=== PATIENT | male | born 1990 | race Hispanic/Latino ===

== ENCOUNTER 2016-10-04 14:56 | Inpatient (IN) | payer MEDICAID, OTHER ==
[2016-10-04 14:56] VITALS: BMI 28.7
--- NOTE | 2016-10-04 16:44 | C.PDOC ---
History Of Present Illness 26 y/o male here for detox program from opiates. pt denies any medical complaints. last used yesterday Time Seen by Provider: 10/04/16 16:35 Chief Complaint (Nursing): Substance Abuse Past Medical History Reviewed: Historical Data, Nursing Documentation, Vital Signs Vital Signs: Last Vital Signs Temp 97.5 F L 10/04/16 14:59 Pulse 105 H 10/04/16 14:59 Resp 20 10/04/16 14:59 BP 119/80 10/04/16 14:59 Pulse Ox 97 10/04/16 19:23 - Medical History PMH: Anxiety (denies taking any medication), Depression (denies taking any medication), Gastritis, Hiatal Hernia Denies: Diabetes, Hepatitis, HIV, HTN, Chronic Kidney Disease, Seizures, Sexually Transmitted Disease Surgical History: Endoscopy (8 YRS AGO) - [facility] DETOXIFICATION SERVICES FOR SUBSTANCE ABUSE TREATMENT (05/10/16) GROUP GOVERNMENT SERVICE EXECUTIVE FOR SUBSTANCE ABUSE TREATMENT, PSYCHOEDUCATION (05/10/16) Family History: States: Unknown Family Hx - Social History Hx Tobacco Use: No Hx Alcohol Use: No Hx Substance Use: Yes - Immunization History Hx Tetanus Toxoid Vaccination: Yes Hx Influenza Vaccination: No Hx Pneumococcal Vaccination: No Review Of Systems Constitutional: Negative for: Fever, Chills, Sweats Cardiovascular: Negative for: Chest Pain, Palpitations Respiratory: Negative for: Cough, Shortness of Breath Gastrointestinal: Negative for: Nausea, Vomiting, Abdominal Pain Genitourinary: Negative for: Dysuria Neurological: Negative for: Weakness, Numbness Physical Exam - Physical Exam Appears: Non-toxic, No Acute Distress Skin: Normal Color, Warm, Dry Head: Atraumatic, Normacephalic Chest: Symmetrical, Deformity, No Tenderness Cardiovascular: Rhythm Regular, No Murmur Respiratory: Normal Breath Sounds, No Rales, No Rhonchi, No Stridor, No Wheezing Gastrointestinal/Abdominal: Normal Exam, Soft, No Tenderness, No Guarding, No Rebound Neurological/Psych: Oriented x3, Normal Speech, Normal Motor, Normal Sensation ED Course And Treatment - Laboratory Results Result Diagrams: 10/04/16 17:57 10/04/16 17:57 O2 Sat by Pulse Oximetry: 97 Medical Decision Making Medical Decision Making: pt is medically cleared for detox program. Disposition - Disposition Disposition Time: 19:24 Condition: STABLE - Clinical Impression Clinical Impression: Drug dependence, Opiate dependence Physician Patient Turnover Patient Signed Over To: Teto Resendiz Handoff Comments: await dispo from crisis team, for admission for detox
[2016-10-04 18:04] LABS: RBC URINE < 1 /hpf (0-3); URINE BILIRUBIN NEGATIVE (NEGATIVE); URINE BLOOD NEGATIVE (NEGATIVE); URINE COLOR Yellow (YELLOW); URINE GLUCOSE (UA) NORMAL (Normal); URINE KETONE NEGATIVE (NEGATIVE); URINE LEUKOCYTE ESTERASE NEG Leu/uL (Negative); URINE PROTEIN NEGATIVE (NEGATIVE); URINE UROBILINOGEN NORMAL mg/dL (0.2-1.0)
[2016-10-04 18:07] LABS: BASO % 0.5 % (0.0-2.0); EOS # 0.1 K/uL (0.0-0.7); EOS % 1.2 % (0.0-4.0); HEMATOCRIT 43.7 % (35.0-51.0); LYMPH # 2.9 K/uL (1.0-4.3); MEAN CELL VOLUME 90.6 fL (80.0-94.0); MEAN CORPUSCULAR HEMOGLOBIN 29.9 pg (27.0-31.0); MEAN PLATELET VOLUME 10.9 fL (7.2-11.7); MONO # 0.3 K/uL (0.0-0.8); MONO % 4.1 % (0.0-10.0); NRBC % 0.1 % (0.0-2.0); RED CELL DISTRIBUTION WIDTH 12.9 % (11.5-14.5); WHITE BLOOD COUNT 6.6 K/uL (4.8-10.8)
[2016-10-04 18:10] LABS: CHLORIDE 96 mmol/L (98-107); SODIUM 139 mmol/L (132-148)
[2016-10-04 18:13] LABS: ALB/GLOB RATIO 1.3 (1.0-2.1); ALKALINE PHOSPHATASE 56 U/L (38-126); ALT/SGPT 15 U/L (21-72); AST/SGOT 21 U/L (17-59); BILIRUBIN,TOTAL 0.4 mg/dL (0.2-1.3); BLOOD UREA NITROGEN 13 mg/dL (9-20); CARBON DIOXIDE 29 mmol/L (22-30); GFR AFRICAN-AMERICAN > 60; GLUCOSE,RANDOM 61 mg/dL (75-110); TOTAL PROTEIN 7.7 g/dL (6.3-8.3)
[2016-10-04 18:14] LABS: ALCOHOL SERUM < 10 mg/dl (0-10); CALCIUM 8.7 mg/dl (8.6-10.4)
[2016-10-06 15:52] VITALS: RESP 18
--- NOTE | 2016-10-06 20:17 | PCM.PSYCH ---
Initial Psychiatric Evaluation - Initial Psychiatric Evaluation Legal Status: Capacity Chief Complaint (in patient's own words): I need help. Patient's Reaction to Hospitalization: I'm glad I finally decided to come. History of Present Illness and Precipitating Events: Pt is 26-yr-old white domiciled male living with mother, currently unemployed. Pt started using painkillers at age 23 for stomach issues. At the start, the opiates gave him a feeling of euphoria. Pt progressed to heroin. He snorts 6- 15 bags a day. He smokes on the average 1 blunt a day. Pt occasionaolly uses benzodiazepines. Pt relapsed after losing his part-time job at [employer]. Pt's parents when he was 10. He is an only child. Family psych history includes father w PTSD. mother w depression and anxiety, paternal grandmother has Bipolar Disorder. There is a family history of substance use; has father is on methadone. Pt has a history of cutting; he is diagnosed w Bipolar II. Pt currently on Trazodone, Seroquel, and Strattera. Pt in the past has been tried on Abilify, Zoloft, Depakote, among others. Pt has no legal or history. Pt has GERD and a hiatal hernia and is on Protonix. Pt has never been in rehab. Current Medications: Active Medications Generic Name Dose Route Start Last Admin Trade Name Freq PRN Reason Stop Dose Admin Chlordiazepoxide 25 mg 10/04/16 20:13 10/06/16 14:27 Librium PO 25 mg Q4 PRN Administration Benzo. Withdrawal Clonidine HCl 0.1 mg 10/05/16 10:00 10/06/16 17:57 Catapres PO Not Given BID JANINE Hydroxyzine HCl 25 mg 10/04/16 20:14 10/06/16 00:10 Atarax PO 25 mg Q8H PRN Administration Anxiety Methadone HCl 5 mg 10/06/16 14:04 10/06/16 17:53 Methadone PO 10/08/16 14:05 5 mg ONCE PRN Administration Other Quetiapine Fumarate 100 mg 10/04/16 22:00 10/05/16 21:09 Seroquel PO 100 mg HS JANINE Administration Trazodone HCl 150 mg 10/05/16 22:00 03/25/17 21:09 Desyrel PO 150 mg HS JANINE Administration Past Psychiatric History - Past Psychiatric History Prior Professional Help: See HPI Pertinent Medical Hx (Current Medical&Sleep Prob, Allergies): Allergies Allergy/AdvReac Type Severity Reaction Status Date / Time nicotine Allergy Mild RASH Verified 10/04/16 15:02 Esomeprazole Magnesium [Nexium] 2 tab PO DAILY 05/29/15 Clonidine 0.1 each PO TID 05/10/16 QUEtiapine [Seroquel] 100 mg PO HS #30 tab 05/14/16 traZODone [Desyrel] 100 mg PO HS PRN #30 tab 05/14/16 Atomoxetine HCl [Strattera] 80 mg PO DAILY 10/04/16 Review of Systems - Constitutional Constitutional: Sweats, Malaise - EENT Eyes: UNREMARKABLE Ears: UNREMARKABLE Nose/Mouth/Throat: UNREMARKABLE - Cardiovascular Cardiovascular: UNREMARKABLE - Respiratory Respiratory: UNREMARKABLE - Gastrointestinal Additional comments: GERD - Genitourinary Genitourinary: UNREMARKABLE - Reproductive: Male Reproductive:Male: UNREMARKABLE - Musculoskeletal Musculoskeletal: Arthralgias, Myalgias - Integumentary Integumentary: UNREMARKABLE - Neurological Neurological: UNREMARKABLE - Psychiatric Psychiatric: UNREMARKABLE - Endocrine Endocrine: UNREMARKABLE - Hematologic/Lymphatic Hematologic: UNREMARKABLE Mental Status Examination - Personal Presentation Personal Presentation: Looks stated age - Affect Affect: Constricted - Motor Activity Motor Activity: Calm - Reliability in Providing Information Reliability in Providing Information: Good - Speech Speech: Organized - Mood Mood: Anxious - Formal Thought Process Formal Thought Process: No Impairment - Cognitive Functions Orientation: Person, Place, Situation, Time Sensorium: Alert Attention/Concentration: Attentive Abstract Thinking: As evidence by abstract perception of proverbs Estimate of Intelligence: Average Judgement: Intact, as evidence by: Good judgement Memory: Recent intact, as evidence by: 3/3 object recall, Remote intact, as evidenced by: Abilit to recall sig. life events - Strength & Assets Inventory Strength & Assets Inventory: Intelligence, Education, Employment history DSM 5 DX - Recommended/Plan of Treatment Treatment Recommendations and Plan of Treatment: Opiate withdrawal, severe, Opiate use disorder, severe Cannabis use disorder Bipolar Disorder II GERD Opiate withdrawal, severe, Subutex protocol, group, Milieu, and recreational therapy, individual supportive psychotherapy, BBI and [place] Opiate use disorder, severe, group, Milieu, and recreational therapy, individual supportive psychotherapy, BBI and [place] Cannabis use disorder, group, Milieu, and recreational therapy, individual supportive psychotherapy, BBI and [place] Bipolar Disorder II, Trazodone, Seroquel, Neurontin GERD, Protonix Projected ELOS: 5 days Prognosis: good Discharge Plan and Discharge Criteria: no acute withdrawal symptoms - Smoking Cessation Smoking Cessation Initiated: No
--- NOTE | 2016-10-06 21:47 | PCM.PYCHPN ---
Psychiatric Progress Note - Psychiatric Progress Note Patient seen today, length of contact: 15 min Patient Chief Complaint: i cannot sleep I have restless legs Problems Identified/Issues Discussed: withdrawal symptoms and their management Medical Problems: nothing acute Diagnostic Results: reviewed DSM 5 Symptoms Update: mylagias arthraglias hot and cold sweats Medication Change: Yes (methadone librium taper neurontin) Medical Record Reviewed: Yes Mental Status Examination - Cognitive Function Orientation: Person, Place, Situation, Time Memory: Intact Attention: WNL Concentration: Poor Association: WNL Fund of Knowledge: WNL - Mood Mood: Anxious - Affect Affect: Blunted - Speech Speech: Appropriate - Formal Thought Process Formal Thought Process: No Impairment - Suicidal Ideation Suicidal Ideation: No - Homicidal Ideation Homicidal Ideation: No Goal/Treatment Plan - Goal/Treatment Plan Progress Toward Problem(s) and Goals/Treatment Plan: Opiate withdrawal, severe, Opiate use disorder, severe Cannabis use disorder Bipolar Disorder II GERD Opiate withdrawal, severe, Subutex protocol, group, Milieu, and recreational therapy, individual supportive psychotherapy, BBI and [place] Opiate use disorder, severe, group, Milieu, and recreational therapy, individual supportive psychotherapy, BBI and [place] Cannabis use disorder, group, Milieu, and recreational therapy, individual supportive psychotherapy, BBI and [place] Bipolar Disorder II, Trazodone, Seroquel, Neurontin GERD, Protonix Estimated Date of D/C: 10/08/16 - Smoking Cessation Smoking Cessation Initiated: No
[2016-10-07 05:23] VITALS: TEMP 97.5
--- NOTE | 2016-10-07 08:56 | PCM.PYCHDC ---
Mental Status Examination - Mental Status Examination Orientation: Person, Place, Situation, Time Memory: Intact Mood: Neutral Affect: Constricted Speech: Appropriate Attention: WNL Concentration: WNL Association: WNL Fund of Knowledge: WNL Formal Thought Process: No Impairment Suicidal Ideation: No Current Homicidal Ideation?: No Discharge Summary - Discharge Note Reason for Hospitalization: Heroin detox Consultations:: List each consultation separately and include: 1. Reason for request. 2. Findings. 3. Follow-up Summary of Hospital Course include:: 1. Description of specific treatment plan utilized for patients during their course of treatmen. 2. Summarize the time- course for resolution of acute symptoms and/or regressed behaviors. 3. Describe issues identified and worked on during hospitalization. 4. Describe medication utilized. 5. Describe medical problems identified and treated. 6. Reassessment of suicide risk Summary of Hospital Course: The pt was admitted and started on treatment with psychotherapy, support, psychoeducation and medications. PA and CBT used. The pt attended groups and activities, as well as milieu therapy. All the risks and benefits of medications are discussed and the patient understood and agreed. After care discussed with the patient. He asked for an early discharge b/c his mother was in hospital. Risks discussed. He got 5 mg instead of 10 mg as his last dose. - Final Diagnosis (DSM 5) Condition upon Discharge: STABLE DSM 5: Opiate withdrawal, severe, Opiate use disorder, severe Cannabis use disorder Bipolar Disorder II GERD Disposition: HOME/ ROUTINE Follow-up Treatment Plan: Continue below medications after discharge. Follow after care plan as discussed. Use relapse prevention skills Return to ER or call 911 if suicidal, homicidal or symptoms relapse. Stay away from stress, alcohol and drugs. Prescriptions/Medication Reconciliation: traZODone [Desyrel] 150 mg PO HS #30 tab QUEtiapine [Seroquel] 100 mg PO HS #30 tab - Smoking Cessation Smoking Cessation Medication prescribed: No - Antipsychotic Medications Pt discharged on 2 or more routine antipsychotic medications: No
[2016-10-07 09:12] VITALS: BP 108/59; PULSE 70; O2SAT 100
== END 2016-10-07 10:00 | disposition home or self-care (01) | DRG 745 ==
LOC: C.ER 14:56 → C.7D 19:30
PROVIDERS: ADMIT Psychiatry & Neurology Psychiatry; ATTEND Psychiatry & Neurology Psychiatry
PROC: HZ59ZZZ Individual Psychotherapy for Substance Abuse Treatment, Supportive (ICD-10-PCS; principal; 2016-10-04)
PROC: HZ42ZZZ Group Counseling for Substance Abuse Treatment, Cognitive-Behavioral (ICD-10-PCS; 2016-10-04)
PROC: HZ83ZZZ Medication Management for Substance Abuse Treatment, Antabuse (ICD-10-PCS; 2016-10-04)
PROC: HZ2ZZZZ Detoxification Services for Substance Abuse Treatment (ICD-10-PCS; 2016-10-04)
DX: F11.23 Opioid dependence with withdrawal (principal); F19.20 Other psychoactive substance dependence, uncomplicated; F31.81 Bipolar II disorder; F17.200 Nicotine dependence, unspecified, uncomplicated; F12.90 Cannabis use, unspecified, uncomplicated; Z81.8 Family history of other mental and behavioral disorders; K21.9 Gastro-esophageal reflux disease without esophagitis; Z91.5 Personal history of self-harm; K44.9 Diaphragmatic hernia without obstruction or gangrene

== ENCOUNTER 2016-11-14 09:42 | Emergency (ER) | payer MEDICAID, OTHER ==
[2016-11-14 09:42] VITALS: BMI 28.7
[2016-11-14 09:50] VITALS: BP 137/82; PULSE 69; RESP 18; TEMP 97.9; O2SAT 100
--- NOTE | 2016-11-14 10:19 | C.PDOC ---
History Of Present Illness <Brandie Seth - Last Filed: 11/14/16 10:18> <KailaLizbeth A - Last Filed: 11/14/16 10:23> A 26 year old male presents to the ER requesting detox of heroin. Patient notes his last use was last night. Patient notes withdraw but has no other complaints at this time. (Lizbeth Bright) <Brandie Seth - Last Filed: 11/14/16 10:18> History Per: Patient History/Exam Limitations: no limitations Onset/Duration Of Symptoms: Days Current Symptoms Are (Timing): Still Present Suicide/Self Injury Attempted (Context): None Modifying Factor(s): Other (Heroin) Severity: Mild Associated Symptoms: denies: Suicidal Thoughts, Suicidal Plan Additional History Per: Patient <Lizbeth Bright - Last Filed: 11/14/16 10:23> Time Seen by Provider: 11/14/16 10:15 Chief Complaint (Nursing): Substance Abuse Past Medical History - Medical History PMH: Anxiety (denies taking any medication), Depression (denies taking any medication), Gastritis, Hiatal Hernia Denies: Diabetes, Hepatitis, HIV, HTN, Chronic Kidney Disease, Seizures, Sexually Transmitted Disease Surgical History: Endoscopy Family History: States: Unknown Family Hx - Social History Hx Tobacco Use: No Hx Alcohol Use: No Hx Substance Use: Yes - Immunization History Hx Tetanus Toxoid Vaccination: Yes Hx Influenza Vaccination: No Hx Pneumococcal Vaccination: No <Brandie Seth - Last Filed: 11/14/16 10:18> ED Course And Treatment O2 Sat by Pulse Oximetry: 100 <Brandie Seth - Last Filed: 11/14/16 10:18> Disposition - Disposition Disposition Time: 10:19 - POA Present On Arrival: None <SethBrandie Domo - Last Filed: 11/14/16 10:18> <Lizbeth Bright - Last Filed: 11/14/16 10:23> - Disposition Additional Instructions: Please call [phone] or [phone] to inquire about our Detox availability , may speak to coordinator Marielena Instructions: Narcotic Abuse (ED)
--- NOTE | 2016-11-14 10:27 | C.PDOC ---
History Of Present Illness A 26 year old male presents to the ER requesting detox of heroin. Patient notes his last use was last night. Patient has no withdrawal signs, and has no other complaints at this time. Time Seen by Provider: 11/14/16 10:15 Chief Complaint (Nursing): Substance Abuse History Per: Patient History/Exam Limitations: no limitations Onset/Duration Of Symptoms: Days Current Symptoms Are (Timing): Still Present Suicide/Self Injury Attempted (Context): None Modifying Factor(s): Other (Heroin) Associated Symptoms: denies: Suicidal Thoughts, Suicidal Plan Recent travel outside of the [place]: No Additional History Per: Patient Past Medical History Reviewed: Historical Data, Nursing Documentation, Vital Signs Vital Signs: Last Vital Signs Temp 97.9 F 11/14/16 09:45 Pulse 69 11/14/16 09:45 Resp 18 11/14/16 09:45 BP 137/82 11/14/16 09:45 Pulse Ox 100 11/14/16 10:28 - Medical History PMH: Anxiety (denies taking any medication), Depression (denies taking any medication), Gastritis, Hiatal Hernia Surgical History: Endoscopy - [facility] DETOXIFICATION SERVICES FOR SUBSTANCE ABUSE TREATMENT (10/04/16) GROUP INFANT TEACHER FOR SUBSTANCE ABUSE TREATMENT, PSYCHOEDUCATION (05/10/16) GROUP INFANT TEACHER FOR SUBSTANCE ABUSE, COGNITIVE BEHAVIORAL (10/04/16) INDIV PSYCHOTHERAPY FOR SUBSTANCE ABUSE TREATMENT, SUPPORT (10/04/16) MEDS MGMT FOR SUBSTANCE ABUSE TREATMENT, ANTABUSE (10/04/16) Family History: States: Unknown Family Hx - Social History Hx Tobacco Use: No Hx Alcohol Use: No Hx Substance Use: Yes - Immunization History Hx Tetanus Toxoid Vaccination: Yes Hx Influenza Vaccination: No Hx Pneumococcal Vaccination: No Review Of Systems Constitutional: Negative for: Fever, Chills Cardiovascular: Negative for: Chest Pain, Palpitations Respiratory: Negative for: Cough, Shortness of Breath Gastrointestinal: Negative for: Nausea, Vomiting, Diarrhea Psych: Positive for: Other (Opiate abuse). Negative for: Suicidal ideation Physical Exam - Physical Exam Appears: Non-toxic, No Acute Distress, Other (Appears anxious) Skin: Warm, Dry Head: Atraumatic, Normacephalic Eye(s): bilateral: Normal Inspection, EOMI Neck: Normal ROM Chest: Symmetrical Cardiovascular: Rhythm Regular, No Murmur Respiratory: Normal Breath Sounds, No Rales, No Rhonchi, No Wheezing Gastrointestinal/Abdominal: No Tenderness Extremity: Bilateral: Atraumatic, Normal Color And Temperature, Normal ROM Neurological/Psych: Oriented x3, Normal Speech, No Other (No focal deficit) Gait: Steady ED Course And Treatment O2 Sat by Pulse Oximetry: 100 (Room air) Pulse Ox Interpretation: Normal Medical Decision Making Medical Decision Making: Contact Marielena detox coordinator who reports there are no beds available for detox. Patient was given list of local detox centers. Patient to be discharged and stable Disposition - Disposition Disposition: HOME/ ROUTINE Disposition Time: 10:20 Condition: STABLE Additional Instructions: Please call [phone] or [phone] to inquire about our Detox availability , may speak to coordinator Marielena Instructions: Narcotic Abuse (ED) - POA Present On Arrival: None - Clinical Impression Clinical Impression: Opiate dependence - Scribe Statement The provider has reviewed the documentation as recorded by the Scribe Kristine hodges All medical record entries made by the Scribe were at my direction and personally dictated by me. I have reviewed the chart and agree that the record accurately reflects my personal performance of the history, physical exam, medical decision making, and the department course for this patient. I have also personally directed, reviewed, and agree with the discharge instructions and disposition.
== END 2016-11-14 10:20 | disposition home or self-care (01) ==
LOC: C.ER 09:42
DX: F11.20 Opioid dependence, uncomplicated (principal)

== ENCOUNTER 2017-11-25 00:48 | Emergency (ER) | payer MEDICAID ==
[2017-11-25 00:48] VITALS: BMI 28.7
[2017-11-25] MEDS ORDERED: Sodium Chloride 0.9% 500 ML IV ONE ×2 (01:27→01:53)
[2017-11-25 01:56] LABS: BASO # 0.1 K/uL (0.0-0.2); BASO % 0.5 % (0.0-2.0); EOS % 0.1 % (0.0-4.0); HEMOGLOBIN 15.1 g/dL (12.0-18.0); LYMPH # 2.7 K/uL (1.0-4.3); LYMPH % 18.8 % (20.0-40.0); MEAN CELL VOLUME 84.4 fL (80.0-94.0); MEAN CORPUSCULAR HEMOGLOBIN 28.6 pg (27.0-31.0); MEAN CORPUSCULAR HGB CONC 33.9 g/dL (33.0-37.0); MEAN PLATELET VOLUME 9.6 fL (7.2-11.7); MONO # 0.7 K/uL (0.0-0.8); MONO % 4.8 % (0.0-10.0); NEUT % 75.8 % (50.0-75.0); RBC 5.3 Mil/uL (4.40-5.90); RED CELL DISTRIBUTION WIDTH 14.1 % (11.5-14.5); WHITE BLOOD COUNT 14.6 K/uL (4.8-10.8)
[2017-11-25 02:08] LABS: ALB/GLOB RATIO 1.2 (1.0-2.1); ALBUMIN 4.7 g/dL (3.5-5.0); ALT/SGPT 45 U/L (21-72); AST/SGOT 31 U/L (17-59); BLOOD UREA NITROGEN 20 mg/dL (9-20); CALCIUM 9.9 mg/dl (8.6-10.4); GFR AFRICAN-AMERICAN > 60; GFR NON-AFRICAN AMERICAN > 60
--- NOTE | 2017-11-25 03:15 | C.PDOC ---
History Of Present Illness 27 year old male presents to the ED c/o malaise, nausea with several episodes of vomiting. Patient states he works at [email or web address] where its overheating and recently he has been sweating profusely and while at home feels drowsy "sluggish ". Patient tried to hydrate but was unable to keep fluid or solid down. Patient denies fever, chills, diarrhea, rash. Time Seen by Provider: 11/25/17 01:26 Chief Complaint (Nursing): GI Problem History Per: Patient History/Exam Limitations: no limitations Onset/Duration Of Symptoms: Days Current Symptoms Are (Timing): Still Present Recent travel outside of the [place]: No Additional History Per: Patient Past Medical History Reviewed: Historical Data, Nursing Documentation, Vital Signs Vital Signs: Last Vital Signs Temp 98.9 F 11/25/17 03:27 Pulse 82 11/25/17 03:27 Resp 18 11/25/17 03:27 BP 138/79 11/25/17 03:27 Pulse Ox 97 11/25/17 03:53 - Medical History PMH: Anxiety (denies taking any medication), Depression (denies taking any medication), Gastritis, Hiatal Hernia Denies: Diabetes, Hepatitis, HIV, HTN, Chronic Kidney Disease, Seizures, Sexually Transmitted Disease Surgical History: Endoscopy - [facility] DETOXIFICATION SERVICES FOR SUBSTANCE ABUSE TREATMENT (10/04/16) GROUP IT PROJECT MANAGER FOR SUBSTANCE ABUSE TREATMENT, PSYCHOEDUCATION (05/10/16) GROUP IT PROJECT MANAGER FOR SUBSTANCE ABUSE, COGNITIVE BEHAVIORAL (10/04/16) INDIV PSYCHOTHERAPY FOR SUBSTANCE ABUSE TREATMENT, SUPPORT (10/04/16) MEDS MGMT FOR SUBSTANCE ABUSE TREATMENT, ANTABUSE (10/04/16) Family History: States: Unknown Family Hx - Social History Hx Tobacco Use: No Hx Alcohol Use: No Hx Substance Use: Yes - Immunization History Hx Tetanus Toxoid Vaccination: Yes Hx Influenza Vaccination: No Hx Pneumococcal Vaccination: No Review Of Systems Constitutional: Positive for: Weakness, Malaise. Negative for: Fever, Chills Cardiovascular: Negative for: Chest Pain Respiratory: Negative for: Shortness of Breath Gastrointestinal: Positive for: Nausea, Vomiting. Negative for: Abdominal Pain Neurological: Negative for: Weakness, Numbness, Headache, Dizziness Physical Exam - Physical Exam Appears: Non-toxic, No Acute Distress, Other (appears flushed) Skin: Normal Color, Warm, Dry Head: Atraumatic, Normacephalic Eye(s): bilateral: Normal Inspection, PERRL Nose: No Discharge Oral Mucosa: Moist Neck: Normal ROM, Supple Chest: Symmetrical Cardiovascular: Rhythm Regular, No Murmur Respiratory: Normal Breath Sounds, No Rales, No Rhonchi, No Wheezing Gastrointestinal/Abdominal: Soft, No Tenderness, No Guarding, No Rebound Extremity: Normal ROM, No Tenderness, No Swelling Neurological/Psych: Oriented x3, Normal Speech Gait: Steady ED Course And Treatment - Laboratory Results Result Diagrams: 11/25/17 01:53 11/25/17 01:53 O2 Sat by Pulse Oximetry: 97 (On RA) Pulse Ox Interpretation: Normal Progress Note: Plan: - EKG. - Labs. - IV fluids. - Zofran 4 mg IVP. On reassessment, patient is resting comfortably, and is in no acute distress, tolerated PO fluids. Patient was instructed to follow up with physician/clinic in 1-2 days for further evaluation. Reassessment Condition: Improved Disposition Counseled Patient/Family Regarding: Diagnosis, Need For Followup - Disposition Referrals: [facility] [Outside] Disposition: HOME/ ROUTINE Disposition Time: 03:15 Condition: GOOD Additional Instructions: Keep yourself hydrated ( water,gatorade, vitamin water) Follwo up with your doctor in 1-2 days Return to ER if worse Instructions: Dehydration, Adult (DC) Forms: Gen Discharge Inst [facility], [facility] ([place]), Work Excuse - Clinical Impression Clinical Impression: Heat exhaustion, Dehydration, mild - PA / APPLICATIONS TESTER / Resident Statement MD/DO has reviewed & agrees with the documentation as recorded. - Scribe Statement The provider has reviewed the documentation as recorded by the Scribe Jerzy Glaser All medical record entries made by the Scribe were at my direction and personally dictated by me. I have reviewed the chart and agree that the record accurately reflects my personal performance of the history, physical exam, medical decision making, and the department course for this patient. I have also personally directed, reviewed, and agree with the discharge instructions and disposition.
[2017-11-25 03:28] VITALS: BP 138/79; PULSE 82; RESP 18; TEMP 98.9
[2017-11-25 03:51] VITALS: O2SAT 97
--- NOTE | 2017-11-28 17:25 | CARD ---
APPROVED REPORT EKG Measurement Heart [id number] <Conclusion> Normal sinus rhythm Normal ECG
== END 2017-11-25 03:28 | disposition home or self-care (01) ==
LOC: C.ER 00:48
DX: T67.5XXA Heat exhaustion, unspecified, initial encounter (principal); E86.0 Dehydration
CPT/HCPCS: 80053; 82550; 85025; 96374; 99284; J2405; J7040

== ENCOUNTER 2018-02-27 16:18 | Inpatient (IN) | payer MEDICAID ==
[2018-02-27 16:18] VITALS: BMI 28.7
--- NOTE | 2018-02-27 16:52 | C.PDOC ---
History Of Present Illness 28 y/o male presents to ED requesting detox from opiates and heroin. Pt is pre- screened. Otherwise, he denies SI, HI, or any active physical complaints at this time. Time Seen by Provider: 02/27/18 16:39 Chief Complaint (Nursing): Substance Abuse History Per: Patient History/Exam Limitations: no limitations Past Medical History Reviewed: Historical Data, Nursing Documentation, Vital Signs Vital Signs: Last Vital Signs Temp 98.7 F 02/27/18 16:24 Pulse 95 H 02/27/18 16:24 Resp 18 02/27/18 16:24 BP 116/73 02/27/18 16:24 Pulse Ox 95 02/27/18 16:52 - Medical History PMH: Anxiety (denies taking any medication), Depression (denies taking any medication), Gastritis, Hiatal Hernia Denies: Diabetes, Hepatitis, HIV, HTN, Chronic Kidney Disease, Seizures, Sexually Transmitted Disease Surgical History: Endoscopy - [facility] DETOXIFICATION SERVICES FOR SUBSTANCE ABUSE TREATMENT (10/04/16) GROUP ORACLE SOA DEVELOPER FOR SUBSTANCE ABUSE TREATMENT, PSYCHOEDUCATION (05/10/16) GROUP ORACLE SOA DEVELOPER FOR SUBSTANCE ABUSE, COGNITIVE BEHAVIORAL (10/04/16) INDIV PSYCHOTHERAPY FOR SUBSTANCE ABUSE TREATMENT, SUPPORT (10/04/16) MEDS MGMT FOR SUBSTANCE ABUSE TREATMENT, ANTABUSE (10/04/16) Family History: States: Unknown Family Hx - Social History Hx Tobacco Use: No Hx Alcohol Use: No Hx Substance Use: Yes - Immunization History Hx Tetanus Toxoid Vaccination: Yes Hx Influenza Vaccination: No Hx Pneumococcal Vaccination: Yes Review Of Systems Except As Marked, All Systems Reviewed And Found Negative. Constitutional: Negative for: Fever, Chills Cardiovascular: Negative for: Chest Pain Respiratory: Negative for: Shortness of Breath Physical Exam - Physical Exam Additional Physical Exam Comments: Constitutional: No acute distress. Head: Normocephalic. Atraumatic. Eyes: PERRL. ENT: Moist mucous membranes. Neck: Supple. Cardiovascular: Regular rate. Radial pulse 2+ bilaterally. Chest: No tenderness. Respiratory: Clear to auscultation bilaterally. GI: Soft. Nontender. Nondistended. Back: No CVA tenderness. Musculoskeletal: No tenderness or swelling of extremities. Skin: No rash. Neurologic: Alert, no focal deficit ED Course And Treatment - Laboratory Results Result Diagrams: 02/27/18 17:10 02/27/18 17:10 O2 Sat by Pulse Oximetry: 95 Medical Decision Making Medical Decision Making: Plan: Blood work Urinalysis Disposition - Disposition Disposition: HOSPITALIZED Disposition Time: 18:47 Condition: FAIR Forms: [facility] (Slovenian) - Clinical Impression Clinical Impression: Opioid use disorder, severe, dependence, History of depression, History of anxiety, History of ADHD - Scribe Statement The provider has reviewed the documentation as recorded by the Scribe KP All medical record entries made by the Scribe were at my direction and personally dictated by me. I have reviewed the chart and agree that the record accurately reflects my personal performance of the history, physical exam, medical decision making, and the department course for this patient. I have also personally directed, reviewed, and agree with the discharge instructions and disposition.
[2018-02-27 17:15] LABS: BASO % 0.5 % (0.0-2.0); EOS # 0.2 K/uL (0.0-0.7); EOS % 1.5 % (0.0-4.0); HEMOGLOBIN 15.2 g/dL (12.0-18.0); LYMPH # 4.2 K/uL (1.0-4.3); LYMPH % 41.9 % (20.0-40.0); MEAN CORPUSCULAR HEMOGLOBIN 29.7 pg (27.0-31.0); MEAN CORPUSCULAR HGB CONC 34.1 g/dL (33.0-37.0); MEAN PLATELET VOLUME 10.3 fL (7.2-11.7); MONO # 0.4 K/uL (0.0-0.8); NEUT # 5.2 K/uL (1.8-7.0); NEUT % 52.1 % (50.0-75.0); NRBC % 0.1 % (0.0-2.0); RBC 5.12 Mil/uL (4.40-5.90); RED CELL DISTRIBUTION WIDTH 14.3 % (11.5-14.5)
[2018-02-27 17:21] LABS: URINE BILIRUBIN NEGATIVE (NEGATIVE); URINE BLOOD NEGATIVE (NEGATIVE); URINE CLARITY Clear (Clear); URINE COLOR Yellow (YELLOW); URINE GLUCOSE (UA) NORMAL (Normal); URINE LEUKOCYTE ESTERASE NEG Leu/uL (Negative); URINE PROTEIN NEGATIVE (NEGATIVE); URINE UROBILINOGEN NORMAL mg/dL (0.2-1.0)
[2018-02-27 17:26] LABS: ALB/GLOB RATIO 1.5 (1.0-2.1); ALBUMIN 4.6 g/dL (3.5-5.0); ALT/SGPT 22 U/L (21-72); AST/SGOT 14 U/L (17-59); BLOOD UREA NITROGEN 17 mg/dL (9-20); CALCIUM 9.2 mg/dl (8.6-10.4); GFR AFRICAN-AMERICAN > 60; GFR NON-AFRICAN AMERICAN > 60
[2018-02-27 17:40] LABS: BARBITURATES, UR NEGATIVE (NEGATIVE); BENZODIAZEPINES, UR NEGATIVE (NEGATIVE); PHENCYCLIDINE, UR NEGATIVE (NEGATIVE)
[2018-02-27 17:42] LABS: OPIATES, UR POSITIVE (NEGATIVE)
[2018-02-27] MEDS ORDERED: Aluminum Hydroxide/Magnesium Hydroxide Susp (30 mL) PO PRN (18:38)
--- NOTE | 2018-02-27 18:58 | PCM.BM ---
<uX Iqbal - Last Filed: 02/27/18 18:57> Treatment Plan Problems - Problems identified on initial assessmt potential for opiate withdrawal Date Initiated: 02/27/18 Time Initiated: 18:58 Status: Active Treatment assets and liabiliti Patient Assests: cognitively intact Patient Liabilities: substance abuse, medical problems - Milieu Protocol Maintain good personal hygiene: daily Encourage regular showers, daily Remind patient to perform daily oral care, daily Assist patient to perform ADL's Conduct patient checks and document Observation sheet: Q15 minutes Maintain personal safety: every shift Educate patient to report safety concerns to staff, every shift Monitor environment for contraband/sharps Medication safety: Monitor for expected outcome, potential side effects: every shift, Assess barriers to learning: every shift, Assess readiness for medication education: every shift <Marielena Dorado - Last Filed: 03/02/18 09:41> Family Contact Family involvement: Famliy/SO not involved - Goals for Treatment Patient goals for treatment: Complete detox and transition to IOP with SUBOXONE MAINTENANCE. Discharge/Continuing Care - Education Needs Education Needs: Patient Medication, Patient Diagnosis/Disease Process, Patient Coping Skills, Patient Anger Management skills, Patient Placement options, Patient Community resources - Discharge Discharge Criteria: No longer exhibiting s/s of withdrawal, Reduction of target symptoms Discharge to:: Home - Treatment Team Participation Patient/Family/SO Statement: 03/02/18 09:41 "I wanna go to an IOP and resume Suboxone with my doctor..." Discussed with Family/SO: No Was Patient/Family/SO present at Treatment Team Meeting: Yes <Sally Rogers - Last Filed: 03/02/18 23:01> - Diagnosis (1) Opioid use disorder, severe, dependence Status: Acute Interventions: 03/02/18 23:00 * Assess 7x/week regarding severity of withdrawal * Educate regarding risks, benefits, side effects and alternatives of medications * Use Motivational Interviewing for abstinence * Use CBT for relapse prevention * Medication management for withdrawal symptoms * Encourage medication assisted treatment
[2018-02-28] MEDS ORDERED: Buprenorphine Hydrochloride 2 mg SL ONE ×2 (08:28→11:45)
--- NOTE | 2018-02-28 20:43 | PCM.PSYCH ---
Initial Psychiatric Evaluation - Initial Psychiatric Evaluation Legal Status: Capacity Chief Complaint (in patient's own words): I NEED TO GET CLEAN Patient's Reaction to Hospitalization: I FEEL SAFE HERE History of Present Illness and Precipitating Events: PT IS A 28 YEAR OLD WHITE SINGLE DOMICILED MALE WHO CAME TO [facility] FOR DETOX FROM HEROIN.PT WAS ORIGINALLY GIVEN OPIOIDS FOR BACK PAIN AND THE PAIN KILLER GAVE HIMN EUPHORIA. PT STARTED USING HEROIN INTRANASAALY AT AGE22. AT HIS WORST HE WOULD DO 5-8 BUNDLES A DAY. CURRENTLY HE HAS BEEN USING ABOUT 2 BUNDLES A DAY.HE USES CANNABIS OCCASIONALLY. HE DENIES USE AND ABUSE OF ANY OTHER SUBSTANCE LICIT OR ILLICIT. PT HAS NEVER BEEN IN THE . HE HAS BEEN ARRESTED FOR DISORDERLY CONDUCT. MOTHER, MATERNAL AUNT AND MATERNAL GRANDMOTHER ALL SUFFER FROM ANXIETY ANDDEPRESSION. FATHER USED HEROIN AND OTHER DRUGS. PT HAS NO MEDICAL PROBLEMS. PT IS EARNING A BACHELOR IN BUSINESS ADMINSTRATION. PT HAS BEEN ON NEURONTIN AND TRAZODONE WELL PROZAC IN THE PAST. PT HAS BEEN DIAGNOSED WITH ADHD AND IS PRESCRIBED ADDERALL. Current Medications: Active Medications Generic Name Dose Route Start Last Admin Trade Name Freq PRN Reason Stop Dose Admin Acetaminophen 650 mg 02/27/18 18:38 Tylenol 325mg Tab PO Q4H PRN Pain, moderate (4-7) Al Hydrox/Mg Hydrox/Simethicone 30 ml 02/27/18 18:38 Maalox 30 Ml PO TID PRN Indigestion / Heartburn Buprenorphine HCl 6 mg 03/01/18 10:00 Subutex SL 03/04/18 09:59 .TAPER JANINE Taper Clonidine HCl 0.1 mg 02/27/18 18:38 Catapres PO Q8 PRN COWS Score More or Equal to 5 Cyclobenzaprine HCl 5 mg 02/28/18 14:00 02/28/18 18:14 Flexeril PO 5 mg TID JANINE Administration Gabapentin 300 mg 02/28/18 10:00 02/28/18 18:14 Neurontin PO 300 mg TID JANINE Administration Hydroxyzine HCl 25 mg 02/27/18 18:52 Atarax PO Q6 PRN Anxiety Loperamide HCl 2 mg 02/27/18 18:38 Imodium PO Q8 PRN Diarrhea Ondansetron HCl 4 mg 02/27/18 18:38 Zofran Tab PO Q8 PRN Nausea/Vomiting Trazodone HCl 100 mg 02/27/18 22:00 02/27/18 22:24 Desyrel PO 100 mg HS JANINE Administration Past Psychiatric History - Past Psychiatric History Prior Professional Help: SEE HPI Pertinent Medical Hx (Current Medical&Sleep Prob, Allergies): Allergies Allergy/AdvReac Type Severity Reaction Status Date / Time No Known Allergies Allergy Verified 02/27/18 16:22 Esomeprazole Magnesium [Nexium] 2 tab PO DAILY 05/29/15 Buprenorphine HCl/Naloxone HCl [Suboxone 8 mg-2 mg Sl Film] 1 each SL TID Gabapentin 300 mg PO DAILY 11/25/17 traZODone [Desyrel] 100 mg PO BID 11/25/17 Dextroamphetamine/Amphetamine [Adderall Xr 20 mg Capsule] 20 mg PO DAILY Review of Systems - Review of Systems Systems not reviewed;Unavailable: Acuity of Condition - Constitutional Constitutional: Chills, Weakness, Malaise - EENT Eyes: UNREMARKABLE Ears: UNREMARKABLE Nose/Mouth/Throat: UNREMARKABLE - Cardiovascular Cardiovascular: UNREMARKABLE - Respiratory Respiratory: UNREMARKABLE - Gastrointestinal Gastrointestinal: Nausea - Genitourinary Genitourinary: UNREMARKABLE - Reproductive: Male Reproductive:Male: UNREMARKABLE - Musculoskeletal Musculoskeletal: Arthralgias, Myalgias - Integumentary Integumentary: UNREMARKABLE - Neurological Neurological: UNREMARKABLE - Psychiatric Psychiatric: Anxiety, Depression - Endocrine Endocrine: UNREMARKABLE - Hematologic/Lymphatic Hematologic: UNREMARKABLE Mental Status Examination - Affect Affect: Constricted - Motor Activity Motor Activity: Calm - Reliability in Providing Information Reliability in Providing Information: Good - Speech Speech: Organized - Mood Mood: Anxious - Formal Thought Process Formal Thought Process: No Impairment - Obsessions/Compulsions Obsessions: None Compulsions: None - Cognitive Functions Orientation: Person, Place, Situation, Time Sensorium: Alert Attention/Concentration: Attentive Abstract Thinking: As evidence by abstract perception of proverbs Estimate of Intelligence: Above Average Judgement: Intact, as evidence by: Good judgement Memory: Recent intact, as evidence by: Ability to recall events of the day, Remote intact, as evidenced by: Abilit to recall sig. life events - Risk Risk: Withdrawal, Diminished functioning - Limitations Limitations: Other DSM 5 DX - DSM 5 DSM 5 Diagnosis: OPIOID WITHDRAWAL SUBUTEX TAPER OPIOID USE DISORDER SEVERE MS CBT SUPPORTIVE PSYCHOTHERAPY GROUP MILIEU AND RECREATIONAL THERAPY - Recommended/Plan of Treatment Treatment Recommendations and Plan of Treatment: SEE ABOVE Projected ELOS: 5 DAYS Prognosis: GOOD WITH TREATMENT Discharge Plan and Discharge Criteria: INPATIENT REHAB NO ACUTE WITHDRAWAL SYMPTOMS - Smoking Cessation Smoking Cessation Initiated: No
[2018-03-01] MEDS: Buprenorphine Hydrochloride 2 mg SL SCH (09:20)
--- NOTE | 2018-03-01 20:14 | PCM.PYCHPN ---
Psychiatric Progress Note - Psychiatric Progress Note Patient seen today, length of contact: 15 MIN Patient Chief Complaint: I CAN'T SLEEP Problems Identified/Issues Discussed: PT SEEN AND EXAMINED DISCUSSED WITH STAFF NURSES' NOTES REVIEWED DISCUSSED WITH PT OPTIONS FOR MAT SUBOXONE VS MMTP ALSO SELF HELP GROUPS Medical Problems: NONE REPORTED Diagnostic Results: REVIEWED DSM 5 Symptoms Update: INSOMNIA MYALGIAS ARTHRAGLIAS Medication Change: Yes ( DOSAGES CHANGE DAILY DURING A TAPER) Medical Record Reviewed: Yes Mental Status Examination - Cognitive Function Orientation: Place, Situation, Time Memory: Intact Attention: WNL Concentration: WNL Association: WNL Fund of Knowledge: WNL - Mood Mood: Anxious - Affect Affect: Constricted - Formal Thought Process Formal Thought Process: No Impairment - Suicidal Ideation Suicidal Ideation: No - Homicidal Ideation Homicidal Ideation: No Goal/Treatment Plan - Goal/Treatment Plan Need for Continued Stay: Severe depression anxiety Progress Toward Problem(s) and Goals/Treatment Plan: OPIOID WITHDRAWAL SUBUTEX TAPER WITH PRNS FOR NECESSARY SYMPTOMS OPIOID USECDISORDER SEVERE NE CBT GROUP MILIEU AND RECREATIONAL THERAPY SUPPORTIVE PSYCHOTHERAPY Estimated Date of D/C: 03/05/18 - Smoking Cessation Smoking Cessation Initiated: No
[2018-03-02] MEDS: Buprenorphine Hydrochloride 2 mg SL SCH (09:20)
--- NOTE | 2018-03-02 15:56 | PCM.PYCHPN ---
Psychiatric Progress Note - Psychiatric Progress Note Patient seen today, length of contact: 15 minutes Patient Chief Complaint: "I need detox." Problems Identified/Issues Discussed: Pt is seen, chart reviewed, case discussed with staff. Pt is compliant with medications and reports no side-effects. Symptoms are improving but needs more time to stabilize. Pt is pleasant and willing to do whatever he can so that he can continue with his Suboxone treatment; pt has quit his job to avoid the stress it brings and is interested in an outpatient program. After care discussed. Medication Change: Yes ( DOSAGES CHANGE DAILY DURING A TAPER) Medical Record Reviewed: Yes Mental Status Examination - Cognitive Function Orientation: Place, Situation, Time Memory: Intact Attention: WNL Concentration: WNL Association: WNL Fund of Knowledge: WNL - Mood Mood: Anxious - Affect Affect: Constricted - Formal Thought Process Formal Thought Process: No Impairment - Suicidal Ideation Suicidal Ideation: No - Homicidal Ideation Homicidal Ideation: No Goal/Treatment Plan - Goal/Treatment Plan Need for Continued Stay: Severe depression anxiety Progress Toward Problem(s) and Goals/Treatment Plan: Continue medications. Support and psychoeducation daily Attend groups and activities daily After care planning by TYESHA 15 min Estimated Date of D/C: 03/05/18
[2018-03-02 17:28] VITALS: RESP 18
[2018-03-03 09:43] VITALS: BP 117/78; PULSE 82; TEMP 98.3; O2SAT 99
[2018-03-03] MEDS: Buprenorphine Hydrochloride 2 mg SL SCH (09:45)
--- NOTE | 2018-03-03 10:39 | PCM.PYCHDC ---
Mental Status Examination - Mental Status Examination Orientation: Person, Place, Situation, Time Memory: Intact Mood: Anxious Affect: Constricted Speech: Appropriate Attention: WNL Concentration: WNL Association: WNL Fund of Knowledge: WNL Formal Thought Process: No Impairment Suicidal Ideation: No Current Homicidal Ideation?: No Discharge Summary - Discharge Note Reason for Hospitalization: Opioid detox Consultations:: List each consultation separately and include: 1. Reason for request. 2. Findings. 3. Follow-up Summary of Hospital Course include:: 1. Description of specific treatment plan utilized for patients during their course of treatmen. 2. Summarize the time- course for resolution of acute symptoms and/or regressed behaviors. 3. Describe issues identified and worked on during hospitalization. 4. Describe medication utilized. 5. Describe medical problems identified and treated. 6. Reassessment of suicide risk Summary of Hospital Course: The pt was admitted and started on treatment with psychotherapy, support, psychoeducation and medications. CA and CBT used. The pt attended groups and activities, as well as milieu therapy. All the risks and benefits of medications are discussed and the patient understood and agreed. The pt improved with the treatments provided. After care discussed with the patient. He will go to [facility] treatment. - Final Diagnosis (DSM 5) Condition upon Discharge: IMPROVED DSM 5: Opioid withdrawal opioid use d/o - severe Disposition: HOME/ ROUTINE Follow-up Treatment Plan: Continue below medications after discharge. Follow after care plan as discussed. Use relapse prevention skills Return to ER or call 911 if suicidal, homicidal or symptoms relapse. Stay away from stress, alcohol and drugs. See primary doctor regularly and get labs. Prescriptions/Medication Reconciliation: Cyclobenzaprine [Flexeril] 5 mg PO TID #90 tab Gabapentin [Neurontin] 300 mg PO TID #90 cap traZODone [Desyrel] 100 mg PO HS #30 tab - Smoking Cessation Smoking Cessation Medication prescribed: No - Antipsychotic Medications Pt discharged on 2 or more routine antipsychotic medications: No
== END 2018-03-03 11:09 | disposition home or self-care (01) | DRG 745 ==
LOC: C.ER 16:18 → C.7D 18:46
PROVIDERS: ADMIT Psychiatry & Neurology Psychiatry; ATTEND Psychiatry & Neurology Psychiatry
PROC: HZ2ZZZZ Detoxification Services for Substance Abuse Treatment (ICD-10-PCS; principal; 2018-02-27)
PROC: HZ52ZZZ Individual Psychotherapy for Substance Abuse Treatment, Cognitive-Behavioral (ICD-10-PCS; 2018-02-27)
PROC: HZ59ZZZ Individual Psychotherapy for Substance Abuse Treatment, Supportive (ICD-10-PCS; 2018-02-27)
PROC: HZ56ZZZ Individual Psychotherapy for Substance Abuse Treatment, Psychoeducation (ICD-10-PCS; 2018-02-27)
PROC: HZ42ZZZ Group Counseling for Substance Abuse Treatment, Cognitive-Behavioral (ICD-10-PCS; 2018-02-27)
PROC: HZ46ZZZ Group Counseling for Substance Abuse Treatment, Psychoeducation (ICD-10-PCS; 2018-02-27)
PROC: GZHZZZZ Group Psychotherapy (ICD-10-PCS; 2018-02-27)
PROC: GZ58ZZZ Individual Psychotherapy, Cognitive-Behavioral (ICD-10-PCS; 2018-02-27)
PROC: GZ56ZZZ Individual Psychotherapy, Supportive (ICD-10-PCS; 2018-02-27)
DX: F11.23 Opioid dependence with withdrawal (principal); F12.90 Cannabis use, unspecified, uncomplicated; F90.9 Attention-deficit hyperactivity disorder, unspecified type; G47.00 Insomnia, unspecified; M79.1 Myalgia; M25.50 Pain in unspecified joint; F41.9 Anxiety disorder, unspecified; F32.9 Major depressive disorder, single episode, unspecified